=== PATIENT | female | born 1940 | race Caucasian/White ===

== ENCOUNTER 2017-01-17 05:13 | Day surgery (SDC) | payer MEDICARE ==
[2017-01-15 15:10] LABS: HEMATOCRIT 40.4 % (36.0-48.0); HEMOGLOBIN 13.2 g/dL (12-16); MCH 32.7 pg (26.0-34.0); MCHC 32.7 g/dL (31.0-37.0); RBC 4.04 10x6/uL (4.00-5.40); RDW 12.9 % (11.5-14.5); WBC 5.9 10x3/uL (4.8-10.8)
[~2017-01-17] VITALS: Ht 165.1 cm; Wt 61.2 kg
--- NOTE | ~2017-01-17 | OP ---
PATIENT NAME: LEONA ALLRED MEDICAL RECORD: [id number] LOCATION:[facility] ADMISSION DATE: SURGEON: BULMARO DAWKINS DATE OF OPERATION: 01/17/2017 SURGEON: Bulmaro Dawkins DPM. 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 ANESTHESIA: LMA with local field block. HEMOSTASIS: Pneumatic ankle tourniquet inflated to 250 mmHg on the well-padded left ankle. ESTIMATED BLOOD LOSS: Minimal. MATERIALS: 4-0 nylon. INJECTABLES: A 10 cc of 0.25% Marcaine plain. 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 She forms a painful hyperkeratotic lesion of the base of the toes. I have reviewed with her the proposed procedure. Risks and benefits were reviewed. Complications were discussed. Her questions were answered. She was consented for the above-mentioned procedure. The patient was brought in the operating room and placed in the operating table in supine position. A timeout was called with Dr. Dawkins, who identified the patient, the surgical site, and the surgery to be performed. Once appropriate anesthesia was obtained, the foot was prepped and draped in the usual aseptic manner. The pneumatic ankle tourniquet was inflated to 250 mmHg on the well-padded left ankle. Attention was directed to the second and third toes, which were noted to be syndactalized to the level of the head of the proximal phalanx. Utilizing the ink pen, the proposed resection of skin was marked out with the ink pen on the second toe. It was pressed against the third toe to create an ink margin on the third toe. Next, utilizing a fresh 15 blade, the inked-out margin of skin was resected in 1 complete piece from the distal aspect of the second toe all the way to the base of the web space and that up onto the third toe. This was passed from the field. The surgical site was then irrigated with copious amounts of normal sterile saline. Next, simple interrupted sutures were placed utilizing 4-0 nylon. The sutures were placed one at a time from dorsal to plantar, dorsal to plantar, dorsal to plantar. Each was tied individual in succession, thus completing the syndactylization. A dressing consisting of Xeroform, 4 x 4's, Kerlix, and Bebo bandage was applied OPERATIVE REPORT [id number] LEONA ALLRED to the left foot. The pneumatic ankle tourniquet was deflated and capillary refill time is noted to be immediate to all digits of the left foot. The patient was discharged home with instructions to ice and elevate the left foot. She has a boot from previous foot pathology. She will utilize that at all times when ambulating. She has my cell phone number for any after hour difficulties and there were no complications with this procedure. We will follow up with her next week. TRANSINT:[id number] Voice Confirmation ID: [id number] DOCUMENT ID: [id number] BULMARO DAWKINS CC: [id number] DICTATION DATE: 01/17/171653 [employer]ER: 01/17/172129 [facility] 01/17/17 [id number] [place] [address]
[~2017-01-17 05:13] MED LIST: AMITRIPTYLINE100 MG PO; CRESTOR20 MG PO; LEVOXYL25 MCG PO; NEURONTIN 300300 MG PO; PROTONIX20 MG PO; XYZAL5 MG PO
[2017-01-17] MEDS ORDERED: COZAAR25 MG PO (14:29)
[2017-01-17] MEDS ORDERED: HYDROCHLOROTH12.5 M1 PO (14:30)
[2017-01-17] MEDS ORDERED: CELEXA40 MG PO (14:31)
[2017-01-17 14:36] VITALS: BP 141/79; Ht 165.1 cm; Wt 61.2 kg
== END 2017-01-17 18:35 | disposition home or self-care (01) ==
LOC: D.OPS 05:13 → D.PAN 13:00 → D.OPS 13:15
PROVIDERS: Anesthesiology
DX: Q70.32 Webbed toes, left foot (principal)

== ENCOUNTER 2017-02-19 22:28 | Emergency (ER) | payer MEDICARE ==
[2017-01-17 14:36] VITALS: BMI 22.5
[~2017-02-19 22:28] MED LIST changes: +CELEXA40 MG PO; +COZAAR25 MG PO; +HYDROCHLOROTH12.5 M1 PO
[2017-02-19 23:03] LABS: BASOPHILS 0.5 % (0-2); EOSINOPHILS 2.2 % (0-7); HEMATOCRIT 39.8 % (36.0-48.0); HEMOGLOBIN 13.3 g/dL (12-16); IMMATURE GRANULOCYTES 0.3 % (0-5); LYMPHOCYTES 22.8 % (15-50); MCH 33.3 pg (26.0-34.0); MCHC 33.4 g/dL (31.0-37.0); MCV 99.5 fL (80.0-100.0); MEAN PLATELET VOLUME 9.1 fL (7.4-10.4); MONOCYTES 8.7 % (2-11); NEUTROPHILS 65.5 % (40-80); PLATELET COUNT 188 10x3/uL (130-400); RDW 12.9 % (11.5-14.5); WBC 6.3 10x3/uL (4.8-10.8)
[2017-02-19 23:10] LABS: ALBUMIN 3.7 g/dL (3.4-5.0); ANION GAP 11.8 mmol/L (8-16); BILIRUBIN - TOTAL 0.34 mg/dL (0.2-1.3); CALCIUM 9.3 mg/dL (8.5-10.1); CARBON DIOXIDE 27.9 mmol/L (21.0-32.0); CREATININE - SERUM 1.6 mg/dL (0.6-1.3); POTASSIUM - SERUM 3.7 mmol/L (3.5-5.1)
== END 2017-02-20 01:29 | disposition home or self-care (01) ==
LOC: D.ER 22:28
PROVIDERS: Emergency Medicine
DX: R11.10 Vomiting, unspecified (principal); S37.009A Unspecified injury of unspecified kidney, initial encounter; E86.0 Dehydration; E07.9 Disorder of thyroid, unspecified; I10 Essential (primary) hypertension